=== PATIENT | female | born 1985 | race Caucasian/White ===

== ENCOUNTER 2017-07-24 17:09 | Emergency (ER) | payer BC, OTHER ==
[~2017-07-24] VITALS: Ht 154.9 cm; Wt 56.5 kg
[2017-07-24 17:11] VITALS: Ht 154.9 cm; Wt 56.5 kg
--- NOTE | 2017-07-24 17:28 | ERD ---
ER Documentation Chief Complaint Chief Complaint COUGH X 2 DAYS AND CONGESTION CWP HPI This pleasant 31-year-old female presents to emergency department today for evaluation of cough and congestion x 2 days, cough is described as nonproductive intermediately throughout the day and night,both a runny nose with congestion , denies headache, fever chills, back pain or sob. Patient reports history of exercise-induced asthma, states she has not had an inhaler in a while because she has not been exercising. Patient has not tried any over- the-counter medication for symptomatic relief. ROS All systems reviewed and are negative except as per history of present illness. Allergies Allergies: Coded Allergies: No Known Drug Allergies (Verified Allergy, Mild, 03/01/10) PMhx/Soc History of Surgery: No Anesthesia Reaction: No Hx Neurological Disorder: No Hx Respiratory Disorders: No Hx Cardiac Disorders: Yes (1ST DEGREE AV BLOCK) Hx Psychiatric Problems: No Hx Miscellaneous Medical Probl: No Hx Alcohol Use: No Hx Substance Use: No Hx Tobacco Use: Yes Smoking Status: Former smoker Physical Exam Vitals Vital Signs Date Time Temp Pulse Resp B/P Pulse Ox O2 Delivery O2 Flow Rate FiO2 07/24/17 17:11 98.0 85 18 133/72 100 Vitals stable, triage notes reviewed Physical Exam Const: Well-nourished well-appearing well-hydrated 31-year-old female in no acute distress Head: Eyes: Normal Conjunctiva, PERRLA, EOMI ENT: Bilateral tympanic membranes are dull, nasal mucosa edematous +2 erythemic clear mucus noted, no maxillary or frontal sinus tenderness, pharynx is rough, injected, tonsils not visualized, uvula midline without shift, rises and falls with pronation Neck: Full range of motion..~ No meningismus. No cervical chain node Resp: Respirations even and unlabored, clear to auscultation bilaterally no rales wheezes or rhonchi with forced expiration Cardio: Regular rate and rhythm, no murmurs Abd: Soft, non tender, non distended. No epigastric pain Skin: No petechiae or rashes Back: Ext: Neur: Awake and alert Psych: Normal Mood and Affect Procedures/MDM This 31-year-old female presents to emergency department for evaluation of cough , nasal congestion, with history of exertional airway obstruction, patient is requesting a albuterol inhaler. Emergency room course today includes history and physical exam unremarkable for a asthma exacerbation plan to discharge patient home with MDI albuterol 2 puffs every 4 hours as needed, Tessalon Perles 100 mg every 8 hours as needed cough, increase fluids, increase rest, vitamin C, we will up with primary care physician this week if symptoms fail to improve as anticipated, return to emergency department for worsening of symptoms , or shortness of breath. Patient is stable with no new complaints during ER course, clinically there is no current evidence to suggest meningitis, sepsis, acute abdomen, acute coronary syndromes, pulmonary embolism or any other emergent condition appearing to require further evaluation or hospitalization. I feel the patient is stable for discharge at this time. I have discussed results, examination findings, the treatment plan with the patient and family present prior to discharge. Indications for emergent reevaluation, side effects of medication were also discussed. All questions were answered. Patient verbalizes understanding and agrees with plan of care. Departure Diagnosis: Primary Impression: Cough Condition: Good Patient Instructions: Cough, Chronic, Uncertain Cause, (Adult) Referrals: [facility] Additional Instructions: Thank you for for coming to [facility] for your care today. Please ask your nurse or provider if you have questions about your care today and do not leave until all your questions have been answered. Please use any medications given as directed and follow-up with your doctor (or the doctor you were referred to) in the next 2-3 days. If you do not have a primary care doctor you [place] [facility] [place] You may also use motrin and tylenol as needed for fever and/or pain unless instructed otherwise by your provider or nurse. Indications for more urgent follow-up have been discussed, but you may return to the Emergency Department at ANY time for any worrisome or worsening symptoms. If you have abdominal pain, please know that no test or exam you received is perfect and you should follow up within 8 hours for continued pain. If you had any imaging studies today, such as an X-Ray or CT Scan, these studies will be reviewed later by a radiologist. You will be called if there are important findings that were not identified today, so make sure the contact information you provided at registration is correct. If you received any narcotic pain control medicine today, such as Vicodin, Morphine or Dilaudid, your coordination and judgment may be affected for a number of hours. Please do not drive or operate heavy machinery, and you may want someone to assist you at home. If you were given a prescription for narcotic medication, be aware that it is very addictive- use sparingly and only if necessary. BEVERLY PRESSLEY Jul 24, 2017 17:28
[2017-07-24] MEDS ORDERED: ALBU18HF INHALATION (17:50)
[2017-07-24] MEDS ORDERED: BENZ100C70 PO (17:51)
== END 2017-07-24 18:36 | disposition home or self-care (01) ==
LOC: FTE 17:09
DX: R05 Cough (principal); Z87.891 Personal history of nicotine dependence
CPT/HCPCS: 99284

== ENCOUNTER 2018-03-21 11:50 | Emergency (ER) | END 2018-03-21 12:30 | disposition home or self-care (01) ==

== ENCOUNTER 2018-07-11 23:37 | Emergency (ER) | END 2018-07-12 02:15 | disposition home or self-care (01) ==

== ENCOUNTER 2019-04-15 20:10 | Outpatient (CLI) | payer BC ==
[~2019-04-15] VITALS: Ht 160 cm; Wt 77.9 kg
[~2019-04-15 20:10] MED LIST: ALBU18HF INHALATION; BENZ-6 PO; CEPH-443 PO; CIPR500T4 PO; DIPH1TAB PO; HYDR-4011 PO; NAPR-688 PO; ONDA4TAB14 PO; SULF1TAB31 PO
[2019-04-15 20:41] VITALS: Ht 160 cm; Wt 77.9 kg
[2019-04-15] MEDS ORDERED: PREN-93 PO (20:44)
[2019-04-15] MEDS ORDERED: ACETAMINOPHEN 500 MG TAB PO ONE (21:51)
[2019-04-15] MEDS ORDERED: NITROFURANTOIN (SR) 100 MG CAP PO ONE (22:00)
--- NOTE | 2019-04-15 23:12 | PN ---
Triage Information Date/Time April 15, 2019 Reason for visit: Uterine contractions Weeks of Gestation 25w 2d /Para 6/2 Diabetes: none Hypertention: none Additional information Pt c/o cramping, lower back pain and lower abdominal pressure. She denies dysuria. No bleeding. No fever/chills. PMHx: None. 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 She is followed for this at [facility] and is supposed to have a hysterectomy at some point in the future. POBHx: x 1. x 1. NKDA. Objective BP 107/54 T=98.3 Heart Rate: 140's Heart Rate Comments Accels to 170 BPM. No decels. Contractions: None Results/Medications Results 24 hrs Laboratory Tests Test 04/15/19 20:40 Urine Color YELLOW Urine Clarity CLEAR Urine pH 6.0 Urine Specific Blum 1.025 Urine Ketones NEGATIVE Urine Nitrite NEGATIVE Urine Bilirubin NEGATIVE Urine Urobilinogen NEGATIVE Urine Leukocyte Esterase NEGATIVE Urine Microscopic RBC 9 H Urine Microscopic WBC 1 Urine Hemoglobin 1+ H Urine Glucose NEGATIVE Urine Total Protein NEGATIVE Imaging Results Cervical length 3 cm and closed. Disposition: Discharge Assessment/Plan A: IUP at 25w 2d. UTI. For a repeat . Desires permanent sterilization. P: P.o hydration, 1000 mg Tylenol given p.o. and Macrobid 100 mg x 1. Rx for home Macrobid 100 mg p.o. BID x 7 days. Urine cx. BTL consent signed by pt and myself and pt given a copy. Pt has the hospital [facility] but is going to [facility] and is supposed to delivered at [place] where she cannot have a BTL? Pt asking about how to transfer care at the last minute as she really likes her doctor at [facility]. She had not been given an option for a tubal consent to sign. Her last was completely unplanned as she only has one tube and she was on control when she got . JENNIE TAPIA MD Apr 15, 2019 23:11
--- NOTE | 2019-04-16 00:25 | TRIAGE ---
OB Triage Datetime Report Generated by CPN: 04/16/2019 00:25 Datetime: 04/15/2019 22:19 Pain Assessment Pain Scale: 0 Pain Presence: None/Denies Pain Type: N/A Datetime: 04/15/2019 22:06 Labor Evaluation Frequency: IRRITABILITY Monitor Mode: External Pattern: Normal: <= 5 Contractions in 10 Minutes Resting Tone Nicholson: Relaxed Heart Rate FHR Baseline Rate: 145 Monitor Mode: External US Variability: Moderate 6-25 bpm Accelerations: 15X15 Decelerations: None Category: Category I Datetime: 04/15/2019 21:19 Stage of : OB Triage Labor Evaluation Frequency: IRRITABILITY Monitor Mode: External Duration (sec)2399: 30 Pattern: Normal: <= 5 Contractions in 10 Minutes Resting Tone Nicholson: Relaxed Heart Rate FHR Baseline Rate: 145 Monitor Mode: External US Variability: Moderate 6-25 bpm Accelerations: 10X10 Decelerations: None Category: Category I Datetime: 04/15/2019 21:03 Time of Arrival: 04/15/2019 20:02 EGA: 25.2 Arrived By: Ambulatory Arrived From: Home Chief Complaint: CRAMPING LOWER ABDOMINAL PRESSURE BACK PAIN Movement: Present Rupture of Membranes: Denies Vaginal Bleeding: None Vaginal Discharge: Denies Recent Sexual Intercouse: Denies Abdominal Trauma: Not Applicable Patient Complaints: Cramping; Back Pain Initial Plan: EFM, CALL OB Datetime: 04/15/2019 21:00 Stage of : OB Triage Maternal Assessment Level of Consciousness: Keenly Alert, Responsive DTR's/Clonus: DTRs 2+; No Clonus Headache: Denies Blurred Vision: No Respiratory Effort: Unlabored; Regular Rhythm; Equal Expansion Breath Sounds, Left: Clear and Equal Breath Sounds, Right: Clear and Equal Nausea/Vomiting: Denies RUQ Epigastric Pain: Denies Lower Extremities Edema: None Degree: None Upper Extremities Edema: None Degree: None Facial Edema: None Temperature Route: Oral Fall Risk Assessment History of Falling: (0) No Secondary Diagnosis: (0) No Ambulatory Aid: (0) Bedrest/Nurse Assist IV Therapy: (0) No Gait: (0) Normal/Bedrest/Immobile Mental Status: (0) Oriented to Own Ability Fall Score: 0 Fall Risk Score Definition: No Risk: No action required Pain Assessment Pain Scale: 5 Pain Presence: Constant Pain Type: Cramping; Pressure Pain Location: Abdomen; Back
== END 2019-04-15 23:00 | disposition home or self-care (01) ==
LOC: OBT 20:10 → L-D 20:12 → OBT 23:00
PROVIDERS: ATTEND Obstetrics & Gynecology
DX: O26.892 Other specified pregnancy related conditions, second trimester (principal); R10.9 Unspecified abdominal pain; O23.42 Unspecified infection of urinary tract in pregnancy, second trimester; Z3A.25 25 weeks gestation of pregnancy
CPT/HCPCS: 76817; 81001; 87086; G0463